=== PATIENT | female | born 1970 | race Caucasian/White ===

== ENCOUNTER → 2020-08-14 | Outpatient (CLI) | payer OTHER ==
[2020-08-14 16:02] LABS: BASOPHILS % (AUTO) 0 % (0-10); EOSINOPHILS # (AUTO) 0.1 10^3/uL (0.0-0.3); EOSINOPHILS % (AUTO) 1 % (0-10); HEMATOCRIT 46 % (35-52); HEMOGLOBIN 14.9 g/dL (11.5-16.0); LYMPHOCYTES # (AUTO) 2.2 10^3/uL (1.0-4.0); LYMPHOCYTES % (AUTO) 18 % (12-44); MEAN CORPUSCULAR HEMOGLOBIN 30 pg (25-34); MEAN CORPUSCULAR HGB CONC 32 g/dL (32-36); MEAN CORPUSCULAR VOLUME 92 fL (80-99); MEAN PLATELET VOLUME 10.5 fL (9.0-12.2); MONOCYTES # (AUTO) 0.9 10^3/uL (0.0-1.0); MONOCYTES % (AUTO) 8 % (0-12); NEUTROPHILS # (AUTO) 9.3 10^3/uL (1.8-7.8); NEUTROPHILS % (AUTO) 74 % (42-75); PLATELET COUNT 324 10^3/uL (130-400); WHITE BLOOD COUNT 12.5 10^3/uL (4.3-11.0)
[2020-08-14 16:11] LABS: ALBUMIN 4.3 GM/DL (3.2-4.5); CHLORIDE 104 MMOL/L (98-107); POTASSIUM 3.7 MMOL/L (3.6-5.0); SODIUM 139 MMOL/L (135-145)
[2020-08-14 16:13] LABS: GLUCOSE 112 MG/DL (70-105); TOTAL PROTEIN 7.4 GM/DL (6.4-8.2)
[2020-08-14 16:14] LABS: CARBON DIOXIDE 22 MMOL/L (21-32)
[2020-08-14 16:15] LABS: BILIRUBIN,TOTAL 0.7 MG/DL (0.1-1.0)
[2020-08-14 16:17] LABS: ALKALINE PHOSPHATASE 68 U/L (40-136); GFR ESTIMATED > 60
[2020-08-14 16:18] LABS: BUN/CREATININE RATIO 14
[2020-08-14 16:20] LABS: ALANINE AMINOTRANSFERASE 20 U/L (0-55)
== END ==
LOC: LAB 15:41
PROVIDERS: ATTEND Nurse Practitioner Family
DX: M54.5 Low back pain (principal); R19.7 Diarrhea, unspecified; R10.32 Left lower quadrant pain; R10.31 Right lower quadrant pain
CPT/HCPCS: 36415; 80053; 85025; 86141

== ENCOUNTER 2021-04-28 10:04 | Emergency (ER) | payer OTHER ==
[~2021-04-28] VITALS: Ht 170.2 cm; Wt 80.7 kg
[2021-04-28] MEDS ORDERED: LACTATED RINGERS 1,000 ML IV STA (10:14)
[2021-04-28] MEDS ORDERED: LACTATED RINGERS 1,000 ML IV ONE (10:16)
[2021-04-28 10:20] LABS: BASOPHILS # (AUTO) 0.1 10^3/uL (0.0-0.1); BASOPHILS % (AUTO) 1 % (0-10); EOSINOPHILS # (AUTO) 0.1 10^3/uL (0.0-0.3); EOSINOPHILS % (AUTO) 2 % (0-10); HEMATOCRIT 47 % (35-52); HEMOGLOBIN 15.1 g/dL (11.5-16.0); LYMPHOCYTES % (AUTO) 37 % (12-44); MEAN CORPUSCULAR HEMOGLOBIN 30 pg (25-34); MEAN CORPUSCULAR HGB CONC 32 g/dL (32-36); MEAN CORPUSCULAR VOLUME 93 fL (80-99); MEAN PLATELET VOLUME 11.3 fL (9.0-12.2); MONOCYTES # (AUTO) 0.7 10^3/uL (0.0-1.0); MONOCYTES % (AUTO) 13 % (0-12); NEUTROPHILS # (AUTO) 2.6 10^3/uL (1.8-7.8); NEUTROPHILS % (AUTO) 48 % (42-75); PLATELET COUNT 283 10^3/uL (130-400); WHITE BLOOD COUNT 5.5 10^3/uL (4.3-11.0)
[2021-04-28 10:28] LABS: ALBUMIN 4.6 GM/DL (3.2-4.5)
[2021-04-28 10:29] LABS: CHLORIDE 107 MMOL/L (98-107); POTASSIUM 4.3 MMOL/L (3.6-5.0); SODIUM 143 MMOL/L (135-145)
[2021-04-28 10:30] LABS: CALCIUM 9.3 MG/DL (8.5-10.1)
[2021-04-28 10:31] LABS: GLUCOSE 91 MG/DL (70-105); TOTAL PROTEIN 8.2 GM/DL (6.4-8.2)
[2021-04-28 10:32] LABS: CARBON DIOXIDE 21 MMOL/L (21-32)
[2021-04-28 10:33] LABS: BILIRUBIN,TOTAL 0.6 MG/DL (0.1-1.0)
[2021-04-28 10:34] LABS: ALKALINE PHOSPHATASE 55 U/L (40-136)
[2021-04-28 10:35] LABS: CREATININE SERUM 1.08 MG/DL (0.60-1.30); GFR ESTIMATED 53
[2021-04-28 10:36] LABS: BUN/CREATININE RATIO 14
[2021-04-28 10:37] LABS: ALANINE AMINOTRANSFERASE 25 U/L (0-55)
--- NOTE | 2021-04-28 10:52 | ED General ---
General Chief Complaint: Exposure Stated Complaint: HEAT INJ Nursing Triage Note: Pt to ED via EMS for heat exposure. 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 Pt also reports not sweating. Source of Information: Patient Exam Limitations: No Limitations History of Present Illness Date Seen by Provider: Apr 28, 2021 Time Seen by Provider: 10:06 Initial Comments Here with report of feeling dizzy and nearly passing out with tunnel vision. 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 She reports working outside this morning but then went to work. She noticed that she was not sweating and then became ill. She went to [facility] and then got very dizzy with decreased level of consciousness briefly. EMS was summoned. Noted to be tachycardic but improving when she is cooling off. Arrives here in normal state of consciousness and answering questions well. Does report that she did have some dizziness, nausea and vomiting with this episode. 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 Has been incredibly hot over the last several days with high humidity. Denies diarrhea currently or body aches. She has had Covid vaccine. Timing/Duration: 1 Hour, Other (Getting better) Severity: Moderate Associated Systoms: No Chest Pain, No Fever/Chills; Nausea/Vomiting; No Shortness of Air; Syncope (Near syncope), Weakness Allergies and Home Medications Allergies Coded Allergies: No Known Drug Allergies (Unverified , 04/28/21) Patient Home Medication List Home Medication List Reviewed: Yes Review of Systems Review of Systems Constitutional: see HPI; No chills, No fever EENTM: no symptoms reported Respiratory: no symptoms reported Cardiovascular: see HPI Gastrointestinal: see HPI Genitourinary: no symptoms reported Psychiatric/Neurological: See HPI All Other Systems Reviewed Negative Unless Noted: Yes Past Hneldct-Rovbka-Tsvonh Hx Patient Social History Tobacco Use?: No Substance use?: No Alcohol Use?: No Pt feels they are or have been: No Past Medical History Surgeries: No Respiratory: No Cardiac: No Neurological: No : No Family Medical History Reviewed Nursing Family Hx Physical Exam Vital Signs Vital Signs - First Documented 04/28/21 10:06 Temp 36.1 Pulse 89 Resp 20 B/P (MAP) 181/82 (115) Pulse Ox 100 O2 Delivery Room Air Capillary Refill : Less Than 3 Seconds Height, Weight, BMI Height: '" Weight: lbs. oz. kg; 27.00 BMI Method: General Appearance: No Apparent Distress, WD/WN HEENT: PERRL/EOMI, Pharynx Normal Neck: Non Tender, Supple Respiratory: Lungs Clear, Normal Breath Sounds Cardiovascular: No Murmur, Tachycardia Gastrointestinal: Non Tender, Soft Back: Normal Inspection, No CVA Tenderness, No Vertebral Tenderness Extremity: Normal Range of Motion, Non Tender Neurologic/Psychiatric: Alert, Oriented x3 Skin: Normal Color, Warm/Dry Progress/Results/Core Measures Suspected Sepsis SIRS Temperature: Pulse: 89 Respiratory Rate: 20 Laboratory Tests 04/28/21 10:10: White Blood Count 5.5 Blood Pressure 181 /82 Mean: 115 Laboratory Tests 04/28/21 10:10: Creatinine 1.08, Platelet Count 283, Total Bilirubin 0.6 Results/Orders Lab Results Laboratory Tests Test 04/28/21 10:10 Range/Units White Blood Count 5.5 4.3-11.0 10^3/uL Red Blood Count 5.04 3.80-5.11 10^6/uL Hemoglobin 15.1 11.5-16.0 g/dL Hematocrit 47 35-52 % Mean Corpuscular Volume 93 80-99 fL Mean Corpuscular Hemoglobin 30 25-34 pg Mean Corpuscular Hemoglobin Concent 32 32-36 g/dL Red Cell Distribution Width 12.5 10.0-14.5 % Platelet Count 283 130-400 10^3/uL Mean Platelet Volume 11.3 9.0-12.2 fL Immature Granulocyte % (Auto) 0 % Neutrophils (%) (Auto) 48 42-75 % Lymphocytes (%) (Auto) 37 12-44 % Monocytes (%) (Auto) 13 H 0-12 % Eosinophils (%) (Auto) 2 0-10 % Basophils (%) (Auto) 1 0-10 % Neutrophils # (Auto) 2.6 1.8-7.8 10^3/uL Lymphocytes # (Auto) 2.0 1.0-4.0 10^3/uL Monocytes # (Auto) 0.7 0.0-1.0 10^3/uL Eosinophils # (Auto) 0.1 0.0-0.3 10^3/uL Basophils # (Auto) 0.1 0.0-0.1 10^3/uL Immature Granulocyte # (Auto) 0.0 0.0-0.1 10^3/uL Sodium Level 143 135-145 MMOL/L Potassium Level 4.3 3.6-5.0 MMOL/L Chloride Level 107 98-107 MMOL/L Carbon Dioxide Level 21 21-32 MMOL/L Anion Gap 15 H 5-14 MMOL/L Blood Urea Nitrogen 15 7-18 MG/DL Creatinine 1.08 0.60-1.30 MG/DL Estimat Glomerular Filtration Rate 53 BUN/Creatinine Ratio 14 Glucose Level 91 70-105 MG/DL Calcium Level 9.3 8.5-10.1 MG/DL Corrected Calcium 8.5-10.1 MG/DL Total Bilirubin 0.6 0.1-1.0 MG/DL Aspartate Amino Transf (AST/SGOT) 26 5-34 U/L Alanine Aminotransferase (ALT/SGPT) 25 0-55 U/L Alkaline Phosphatase 55 40-136 U/L Total Protein 8.2 6.4-8.2 GM/DL Albumin 4.6 H 3.2-4.5 GM/DL My Orders Orders - RIGO MOON MD Cbc With Automated Diff (04/28/21 10:14) Comprehensive Metabolic Panel (04/28/21 10:14) Lactated Ringers (Lr 1000 Ml Iv Solution (04/28/21 10:14) Ed Iv/Invasive Line Start (04/28/21 10:14) Lactated Ringers (Lr 1000 Ml Iv Solution (04/28/21 10:16) Vital Signs/I&O 04/28/21 10:06 Temp 36.1 Pulse 89 Resp 20 B/P (MAP) 181/82 (115) Pulse Ox 100 O2 Delivery Room Air Capillary Refill : Less Than 3 Seconds Blood Pressure Mean: 115 Progress Note : Progress Note Seen and evaluated. IV, labs, LR 1 L bolus ordered. Patient noted to have increasing heart rate with just sitting up of at least 15 points. Most likely related to heat injury. Patient counseled on heat injury concerns. We will readdress after fluid administration and see how she is feeling. Monitor patient. 1130: Overall feeling better. I do believe this is heat injury. We did discuss those concerns. Discharged home with return precautions. Patient verbalized understanding of instructions and agreement with plan. Departure Impression Primary Impression: Heat exhaustion Qualified Codes: T67.5XXA - Heat exhaustion, unspecified, initial encounter Disposition: 01 HOME, SELF-CARE Condition: Improved Departure-Patient Inst. Decision time for Depature: 11:31 Referrals: NO,LOCAL PHYSICIAN (PCP/Family) Primary Care Physician Patient Instructions: Heat Exhaustion and Heat Stroke (DC) Add. Discharge Instructions: All discharge instructions reviewed with patient and/or family. Voiced understanding. Drink plenty of fluids and eat a normal diet. Get plenty of rest. You should avoid the heat for the next few days and you may return to normal activity. Monitor yourself for heat injury concerns and monitor your urine to make sure that you are not getting too concentrated (darker yellow color). Follow-up with your doctor for recheck and further evaluation and discuss blood pressure management if needed. Return for weakness, vomiting, diarrhea, breathing problems, chest pain or other concerns as needed. RIGO MOON MD Apr 28, 2021 10:52
[2021-04-28 11:42] VITALS: BP 133/78
== END 2021-04-28 11:40 | disposition home or self-care (01) ==
LOC: EDUNIT# 10:04 → ER 10:08
DX: T67.5XXA Heat exhaustion, unspecified, initial encounter (principal)
CPT/HCPCS: 36415; 80053; 85025

== ENCOUNTER → 2022-02-28 | Outpatient (CLI) | payer OTHER | LOC: LAB 18:08 | PROVIDERS: ATTEND Internal Medicine | DX: R19.7 Diarrhea, unspecified (principal) | CPT/HCPCS: 82274; 87015; 87045; 87046; 87324; 87328; 87329; 87449; 87493; 87899; 89055 ==